=== PATIENT | female | born 1995 | race Caucasian/White ===

== ENCOUNTER 2021-03-12 13:21 | Outpatient (CLI) | payer OTHER ==
[2021-03-12 18:35] LABS: HCT - HEMATOCRIT 39.1 % (37.0-47.0); HGB - HEMOGLOBIN 12.7 g/dL (12.0-16.0); MEAN CORPUSCULAR HEMOGLOBIN 29.9 pg (27.0-31.0); MEAN CORPUSCULAR HGB CONC 32.5 g/dL (32.0-36.0); MEAN PLATELET VOLUME 11.1 fL (7.9-10.8); RED BLOOD COUNT 4.25 10^6/uL (4.20-5.40); RED CELL DISTRIBUTION WIDTH 11.7 % (12.0-15.0); WHITE BLOOD COUNT 7.3 x10^3/uL (4.8-10.8)
[2021-03-12 19:15] LABS: THYROID STIMULATING HORMONE 1.18 uIU/mL (0.34-5.60)
[2021-03-12 19:20] LABS: FREE T4 (FREE THYROXINE) 0.9 ng/dL (0.58-1.64); PROLACTIN 18.79 ng/mL
[2021-03-12 19:43] LABS: FOLLICLE STIMULATING HORMONE 9.91 mIU/mL
[2021-03-12 20:04] LABS: ALBUMIN 4.9 g/dL (3.2-5.5); ALBUMIN/GLOBULIN RATIO 1.6 (1.0-2.2); BILIRUBIN,TOTAL 0.5 mg/dL (0.2-1.0); CALCIUM 9.4 mg/dL (8.5-10.3); CREATININE 0.6 mg/dL (0.4-1.0); POTASSIUM 3.6 mmol/L (3.5-5.0); TOTAL PROTEIN 7.9 g/dL (6.7-8.2)
[2021-03-12 21:31] LABS: ESTIMATED AVERAGE GLUCOSE 97 mg/dL (70-100)
== END 2021-03-12 23:59 | disposition home or self-care (01) ==
LOC: LAB.WCP 13:21
PROVIDERS: ATTEND Obstetrics & Gynecology
DX: Z00.00 Encounter for general adult medical examination without abnormal findings (principal); Z13.29 Encounter for screening for other suspected endocrine disorder; Z83.3 Family history of diabetes mellitus; R68.89 Other general symptoms and signs; N91.5 Oligomenorrhea, unspecified; Z13.21 Encounter for screening for nutritional disorder; Z13.1 Encounter for screening for diabetes mellitus; Z86.2 Personal history of diseases of the blood and blood-forming organs and certain disorders involving the immune mechanism
CPT/HCPCS: 36415; 80053; 81599; 82306; 82670; 83001; 83036; 83498; 83520; 83540; 84146; 84403; 84439; 84443; 84466; 85025; 85027

== ENCOUNTER 2022-08-27 16:31 | Outpatient (CLI) | payer OTHER ==
--- NOTE | 2022-08-28 09:43 | Ultrasound Report ---
PROCEDURE: Pelvic w/Transvaginal INDICATIONS: ABN BREAST FINDINGS,DYSMENORRHEA TECHNIQUE: Real-time scanning was performed of the pelvic organs, with image documentation. Additional endovagi nal scanning was necessary due to incomplete visualization of the adnexal and endometrial structures by transabdominal scanning. COMPARISON: None. FINDINGS: Uterus: Uterus is anteverted and normal in size at 8.5 x 3.6 x 4.4 cm. The myometrium is homogeneou s. The endometrium measures 8.2 mm in combined thickness. There is a polypoidal filling defect with in the cervix measuring 5 mm. Ovaries: The right ovary measures 2.8 x 1.9 x 2.2 cm, with a calculated ovarian volume of 6 cc. The left ovary measures 3 x 2 x 2.9 cm, with a calculated ovarian volume of 9 cc. The ovaries have a no rmal sonographic appearance. Less than 12 follicles can be seen in each ovary. No adnexal masses ar e seen. No cystic lesions measuring greater than 3 cm. Other: No pathologic free abdominal or pelvic fluid. IMPRESSION: Polypoid filling defect within the cervix measuring 5 mm. Recommend direct visualization. Reviewed by: Nicolas Rico on 08/28/2022 9:42 AM PDT Approved by: Nicolas Rico on 08/28/2022 9:42 AM PDT Station ID: [id number]
== END 2022-08-27 16:32 | disposition home or self-care (01) ==
LOC: DI 16:31
PROVIDERS: ATTEND Nurse Practitioner
DX: N87.9 Dysplasia of cervix uteri, unspecified (principal); N94.6 Dysmenorrhea, unspecified

== ENCOUNTER 2022-09-02 12:28 | Outpatient (CLI) | payer OTHER ==
--- NOTE | 2022-09-03 12:04 | Ultrasound Report ---
LIMITED ULTRASOUND OF RIGHT BREAST: 09/02/2022 CLINICAL: Palpable right breast lump. Focal right breast pain. No prior exams were available for comparison. Color flow and real-time ultrasound of the right breast 8-9 o'clock region were performed. Mooney scal e images of the real-time examination were reviewed. No significant abnormalities were seen sonographically in the right breast in the region of concern. IMPRESSION: NEGATIVE There is no sonographic evidence of malignancy. No mass or significant cyst. Exam findings were conveyed to the patient. Patient is advised to monitor for significant change. Cli nical follow-up as needed. This exam was interpreted at Station ID: [id number]. Electronically Signed By: Diego Olivas M.D. slc/:09/02/2022 13:23:07 Ultrasound BI-RADS: 1 Negative BI-RADS CATEGORY: (1) - 1 Unspecified - other recall n/a LATERALITY: (B)
== END 2022-09-02 12:29 | disposition home or self-care (01) ==
LOC: DI 12:28
PROVIDERS: ATTEND Nurse Practitioner
DX: N63.13 Unspecified lump in the right breast, lower outer quadrant (principal); N64.4 Mastodynia

== ENCOUNTER 2023-06-03 07:05 | Emergency (ER) | payer SELFPAY ==
--- NOTE | 2023-06-03 07:26 | ED Physician Documentation ---
PD HPI HEADACHE - Stated complaint Stated Complaint: MIGRANE/ - Chief complaint Chief Complaint: Neuro - History obtained from History obtained from: Patient - History of Present Illness Timing - onset: How many days ago (has had onset migraine type BYERS 8 days ago that has persisted to varying dgrees. Now also lower abd/pelvic cramping pain, lower right most, for few days.) Timing - onset during: Light activity Timing - details: Gradual onset, Still present Worst headache ever?: No: Worst headache ever? (similar to prior migraines when teenager but duration has not occurred before.) Location: Back, Right Quality: Throbbing, Aching Associated symptoms: Nausea, Vision changes (blurred but not loss of vision per se.). No: Fever, Stiff neck, Vomiting Improved by: Quiet Worsened by: Noise Contributing factors: No: Possible carbon monoxide, Recent illness, Trauma Similar symptoms before: Diagnosis (migraines when teeneager, not had for awhile.) Review of Systems Constitutional: denies: Fever, Chills Eyes: reports: Decreased vision, Photophobia. denies: Loss of vision Nose: denies: Rhinorrhea / runny nose, Congestion Throat: denies: Sore throat Respiratory: denies: Cough Skin: denies: Rash Neurologic: denies: Focal weakness, Numbness, Altered mental status PD PAST MEDICAL HISTORY - Past Medical History Past Medical History: Yes Neuro: Migraines (when younger) CONSULTING SOLUTION MANAGER: Other (irregular menses pattern and dysmenorrhia. ) - Past Surgical History Past Surgical History: No - Present Medications Home Medications: Ambulatory Orders Medication Instructions Recorded Confirmed HYDROcod/ACETAM 5/325 [[place] 5/325] 1 ea PO Q6H PRN #12 tablet 06/03/23 Meloxicam [Mobic] 7.5 mg PO BID 10 Days #20 tablet 06/03/23 Ondansetron Odt [Zofran] 4 mg TL Q6H PRN #10 tablet 06/03/23 SUMAtriptan [Imitrex] 25 mg PO Q6H PRN #5 tablet 06/03/23 dexAMETHasone [Decadron] 4 mg PO DAILY #5 tablet 06/03/23 - Allergies Allergies/Adverse Reactions: Allergies Allergy/AdvReac Type Severity Reaction Status Date / Time No Known Drug Allergies Allergy Verified 06/03/23 07:16 - Social History Does the pt smoke?: No Smoking Status: Never smoker Does the pt drink ETOH?: Yes Does the pt have substance abuse?: No - Immunizations Immunizations are current?: Yes - POLST Patient has POLST: No PD ED PE NORMAL - Vitals Vital signs reviewed: Yes - General General: Alert and oriented X 3, Well developed/nourished - HEENT HEENT: PERRL, EOMI, Ears normal, Pharynx benign - Neck Neck: Supple, no meningeal sign, No adenopathy - Cardiac Cardiac: RRR, No murmur - Respiratory Respiratory: Clear bilaterally - Abdomen Abdomen: Normal bowel sounds, Soft, Non distended, Other (tender suprapubic and Right lower abd/pelvic area. ) - Female Female : Deferred - Derm Derm: Normal color, Warm and dry - Neuro Neuro: Alert and oriented X 3, No motor deficit, No sensory deficit, Normal speech Eye Opening: Spontaneous Motor: Obeys Commands Verbal: Oriented GCS Score: 15 Results - Vitals Vitals: Vital Signs - 24 hr 06/03/23 06/03/23 09:33 10:33 Heart Rate 82 76 Respiratory 16 Rate Blood Pressure 108/78 112/84 H O2 Saturation 99 100 Oxygen O2 Source Room air - Labs Labs: Laboratory Tests 06/03/23 06/03/23 06/03/23 07:30 07:30 08:15 WBC 6.4 RBC 4.50 Hgb 13.2 Hct 40.3 MCV 89.6 MCH 29.3 MCHC 32.8 RDW 11.9 L Plt Count 288 MPV 10.4 Neut # (Auto) 4.4 Lymph # (Auto) 1.2 L Hall # (Auto) 0.6 Eos # (Auto) 0.2 Baso # (Auto) 0.0 Absolute Nucleated RBC 0.00 Nucleated RBC % 0.0 Sodium 141 Potassium 3.7 Chloride 109 Carbon Dioxide 25 Anion Gap 7.0 BUN 11 Creatinine 0.7 Estimated GFR (MDRD) 99 Glucose 87 Calcium 9.6 Total Bilirubin 0.5 AST 11 ALT 12 Alkaline Phosphatase 54 Total Protein 7.7 Albumin 5.0 Globulin 2.7 Albumin/Globulin Ratio 1.9 Lipase < 10 L Serum HCG, Qual NEGATIVE Urine Color YELLOW Urine Clarity CLEAR Urine pH 6.0 Ur Specific [place] >=1.030 H Urine Protein NEGATIVE Urine Glucose (UA) NEGATIVE Urine Ketones NEGATIVE Urine Occult Blood SMALL H Urine Nitrite NEGATIVE Urine Bilirubin NEGATIVE Urine Urobilinogen 0.2 (NORMAL) Ur Leukocyte Esterase NEGATIVE Urine RBC 6-10 H Urine WBC 0-3 Ur Squamous Epith Cells FEW Squamous Urine Bacteria Few Urine Mucus Moderate Strands Ur Microscopic Review INDICATED Urine Culture Comments NOT INDICATED - Rads (name of study) head CT Relevant Findings:: Prelim report reviewed (no acute process), EMP independent interpretation of test pelvic US Relevant Findings:: Prelim report reviewed (no acute process), EMP independent interpretation of test PD Medical Decision Making - ED course Complexity details: reviewed results (head CT without acute findings. Pelvic US without acute abnormalities. ), re-evaluated patient (much improved headache with Toradol and Inapsine and fluids, most c/w migraine type BYERS. Still with abd cramping, which makes sense as migraine meds not likely to help that per se (except Toradol). Given Dilaudid as well. ), considered differential (8 days of migrainous type headache varying in severity through the day (worse later in day). Character of it is similar to migraines when teenager. Also with lower abd cramping with uterine bleeding/clots for few days. h/o irregular periods. ), d/w patient Reviewed Lab Results: pelvic US without acute findings. Her pain is correlated with vag bleeding/clots, menses and after few days does not have fever, leukocytosis nor peritoneal findings, so I did not feel need to pursue other process such as appendix. Head CT done since prlonged migraine type BYERS but has not had them this long previous. No focal neuro findings. Does not seem meningitic. LP felt not indicated. Departure - Departure Disposition: 01 Home, Self Care Clinical Impression: Headache, Lower abdominal pain, Dysmenorrhea, Migraine with status migrainosus Condition: Stable Record reviewed to determine appropriate education?: Yes Instructions: ED Cramping Menstrual, ED Headache Migraine [facility]: [facility] [Provider Group] Prescriptions: dexAMETHasone [Decadron] 4 mg PO DAILY #5 tablet SUMAtriptan [Imitrex] 25 mg PO Q6H PRN #5 tablet PRN Reason: Migraine Meloxicam [Mobic] 7.5 mg PO BID 10 Days #20 tablet HYDROcod/ACETAM 5/325 [[place] 5/325] 1 ea PO Q6H PRN #12 tablet PRN Reason: Pain Ondansetron Odt [Zofran] 4 mg TL Q6H PRN #10 tablet PRN Reason: Nausea / Vomiting Comments: Regarding your headache, it had the character of a migraine and seem to respond to typical migraine type medications of nausea medicine and anti-inflammatory as well as fluids. You do not seem to have infectious character and so does not seem like meningitis or other infectious cause. There was not any injury such as concussion. Your C6 CT scan did not show any structural abnormalities such as tumor or bleeding aneurysms. Will presume a migraine headache with status migraine which means prolonged period I would suggest some anti-inflammatories over the next few days. If you have a little bit of persisting headache, then continue steroid anti-inflammatories over a few more days as well. Stable hydrated. Tylenol 500 to 650 mg every 4-6 hours if needed. To that add hydrocodone every 6 hours if needed for worse headache or in particular worse pelvic pain. For subsequent migraines, if you can get them, you can try combination of Tylenol or Excedrin and if not improving then ondansetron and sumatriptan migraine medicine. I wrote a prescription for some of those. Regarding your pelvic pain, your test is negative. Urine does not show signs of infection. Your blood count is good. Ultrasound did not show any signs of cysts or fibroids or other structural abnormalities. Presume some inflammatory aspect to the ovaries causing the pain. The anti-inflammatory would be targeted for this. I wrote for meloxicam twice daily for the next week. Same course of adding Tylenol or hydrocodone if needed. I sent your prescriptions to [facility] pharmacy. Off work today. Recheck if not improved well over the next several days or return worse if worsening. I am prescribing a short course of narcotic pain medication for you. These are potentially dangerous and addictive medications that should be used carefully. These medications may constipate you. Take an imfi-myv-sqnjjlc stool softener such as docusate twice daily with plenty of water while taking these medications. If you go 24 hours without a bowel movement, take ojvy-smi-rupbaos MiraLAX, per package instructions. Do not drink or drive while taking these medications. If you received narcotic or sedating medications while in the emergency department do not drive for 24 hours. Store this medication in a safe, secure place and out of reach of children. It is a violation of federal law to give or sell this medication to another person or to use in a manner other than prescribed. The ED will not refill narcotic prescriptions, including prescriptions lost or stolen. You can dispose of unwanted medications at the [facility] office or at several pharmacies such as [facility]. Forms: PCP List Discharge Date/Time: 06/03/23 10:57
[2023-06-03 08:04] LABS: BASOPHILS % (AUTO) 0.2 %; EOSINOPHILS # (AUTO) 0.2 10^3/uL (0.0-0.7); EOSINOPHILS % (AUTO) 2.5 %; HCT - HEMATOCRIT 40.3 % (37.0-47.0); HGB - HEMOGLOBIN 13.2 g/dL (12.0-16.0); LYMPHOCYTES # (AUTO) 1.2 10^3/uL (1.5-3.5); LYMPHOCYTES % (AUTO) 18.4 %; MEAN CORPUSCULAR HEMOGLOBIN 29.3 pg (27.0-31.0); MEAN CORPUSCULAR HGB CONC 32.8 g/dL (32.0-36.0); MEAN CORPUSCULAR VOLUME 89.6 fL (81.0-99.0); MEAN PLATELET VOLUME 10.4 fL (7.9-10.8); MONOCYTES # (AUTO) 0.6 10^3/uL (0.0-1.0); MONOCYTES % (AUTO) 8.7 %; NEUTROPHILS # (AUTO) 4.4 10^3/uL (1.5-6.6); NEUTROPHILS % (AUTO) 69.9 %; PLT - PLATELET COUNT 288 10^3/uL (130-450); RED CELL DISTRIBUTION WIDTH 11.9 % (12.0-15.0); WHITE BLOOD COUNT 6.4 x10^3/uL (4.8-10.8)
[2023-06-03] MEDS: DROPERIDOL 5 MG/2 ML VIAL IVP STA (08:09)
[2023-06-03] MEDS: SODIUM CHLORIDE 0.9% 1,000 ML IV STA ×2 (08:09→09:10)
[2023-06-03] MEDS: KETOROLAC 15 MG/ML VIAL IVP STA (08:10)
[2023-06-03] MEDS: DEXAMETHASONE 10 MG/ML VIAL IVP STA (08:13)
[2023-06-03 08:14] LABS: ALBUMIN/GLOBULIN RATIO 1.9 (1.0-2.2); ALKALINE PHOSPHATASE 54 IU/L (42-121); ALT ALANINE AMINOTRANSFERASE 12 IU/L (10-60); AST ASPARTATE AMINOTRANSFERASE 11 IU/L (10-42); BILIRUBIN,TOTAL 0.5 mg/dL (0.2-1.0); BUN - BLOOD UREA NITROGEN 11 mg/dL (6-20); CALCIUM 9.6 mg/dL (8.5-10.3); CARBON DIOXIDE - CO2 25 mmol/L (21-32); CHLORIDE 109 mmol/L (101-111); CREATININE 0.7 mg/dL (0.6-1.3); GFR - MDRD 99 (>89); GLUCOSE 87 mg/dL (74-104); LIPASE < 10 U/L (11-82); POTASSIUM 3.7 mmol/L (3.5-4.5); SODIUM 141 mmol/L (135-145); TOTAL PROTEIN 7.7 g/dL (6.4-8.9)
[2023-06-03 08:21] LABS: HCG,QUALITATIVE BLOOD NEGATIVE
[2023-06-03 08:26] LABS: BILIRUBIN,URINE NEGATIVE (NEGATIVE); CLARITY,URINE CLEAR (CLEAR); GLUCOSE, URINE (UA) NEGATIVE (NEGATIVE); KETONES,URINE (UA) NEGATIVE (NEGATIVE); LEUKOCYTE ESTERASE, URINE NEGATIVE (NEGATIVE); NITRITE,URINE NEGATIVE (NEGATIVE); OCCULT BLOOD,URINE SMALL (NEGATIVE); PROTEIN,URINE NEGATIVE (NEGATIVE); UROBILINOGEN,URINE 0.2 (NORMAL) E.U./dL (NORMAL)
[2023-06-03 08:33] LABS: BACTERIA,URINE Few /HPF (None Seen); MUCUS,URINE Moderate Strands; SQUAMOUS EPITHELIAL CELL,UR FEW Squamous (<= Few); WBC,URINE 0-3 /HPF (0-5)
--- NOTE | 2023-06-03 08:39 | CT Report ---
PROCEDURE: Head WO INDICATIONS: BYERS for 8 days TECHNIQUE: Noncontrast 4.5 mm thick angled axial sections acquired from the foramen magnum to the vertex. For r adiation dose reduction, the following was used: automated exposure control, adjustment of mA and/or kV according to patient size. COMPARISON: None. FINDINGS: Image quality: Excellent. CSF spaces: Basal cisterns are patent. No extra-axial fluid collections. Ventricles are normal in size and shape. Brain: No midline shift. No intracranial masses or hemorrhage. Mooney-white matter interface is norm al. Skull and face: Calvarium and visualized facial bones are intact, without suspicious lesions. Sinuses: Visualized sinuses and mastoids are clear. IMPRESSION: No acute intracranial pathology. Reviewed by: Miguel Allan MD on 06/03/2023 8:38 AM PST Approved by: Miguel Allan MD on 06/03/2023 8:38 AM [facility] Station ID: [id number]
[2023-06-03] MEDS: HYDROmorphone 1 MG/ML CARPUJECT IVP STA (10:29)
[2023-06-03 10:35] VITALS: BP 112/84; O2SAT 100
--- NOTE | 2023-06-03 11:26 | Ultrasound Report ---
PROCEDURE: Pelvic w/Doppler Complete INDICATIONS: pelvic pain, R; vag bleeding/clots TECHNIQUE: Sonographic pelvic ultrasound images with Doppler were obtained. COMPARISON: None. FINDINGS: Uterus measures 8.4 x 3.5 x 4.5 cm. Endometrium measures 6.8 cm. It is anteverted. The right ovary me asures 3.6 x 2.4 x 2.0 cm. Volume measures 9 mm. Left ovary measures 1.8 x 1.8 x 2.0 cm. I measures 3 .4 mm. Doppler flow is identified to both ovaries. IMPRESSION: Unremarkable exam with appropriate Doppler flow. Reviewed by: Windy Wu MD on 06/03/2023 11:25 AM PST Approved by: Windy Wu MD on 06/03/2023 11:25 AM [facility] Station ID: [id number]
== END 2023-06-03 10:57 | disposition home or self-care (01) ==
LOC: ED 07:05
DX: G43.901 Migraine, unspecified, not intractable, with status migrainosus (principal); N94.6 Dysmenorrhea, unspecified; R10.31 Right lower quadrant pain
CPT/HCPCS: 36415; 80053; 81001; 81003; 83690; 84703; 85025; 87086; 93975; 96374; 96375; 99284

== ENCOUNTER 2023-12-15 08:00 | Outpatient (CLI) | payer SELFPAY ==
[2023-12-15 17:55] LABS: BASOPHILS # (AUTO) 0.1 10^3/uL (0.0-0.1); BASOPHILS % (AUTO) 0.8 %; EOSINOPHILS # (AUTO) 0.2 10^3/uL (0.0-0.7); EOSINOPHILS % (AUTO) 2.7 %; HCT - HEMATOCRIT 40.3 % (37.0-47.0); HGB - HEMOGLOBIN 13.3 g/dL (12.0-16.0); LYMPHOCYTES # (AUTO) 1.9 10^3/uL (1.5-3.5); LYMPHOCYTES % (AUTO) 24.9 %; MEAN CORPUSCULAR HEMOGLOBIN 29.6 pg (27.0-31.0); MEAN CORPUSCULAR VOLUME 89.6 fL (81.0-99.0); MEAN PLATELET VOLUME 10.2 fL (7.9-10.8); MONOCYTES # (AUTO) 0.6 10^3/uL (0.0-1.0); MONOCYTES % (AUTO) 7.6 %; NEUTROPHILS % (AUTO) 63.7 %; PLT - PLATELET COUNT 323 10^3/uL (130-450); RED CELL DISTRIBUTION WIDTH 11.8 % (12.0-15.0); WHITE BLOOD COUNT 7.8 x10^3/uL (4.8-10.8)
[2023-12-15 18:25] LABS: THYROID STIMULATING HORMONE 1.88 uIU/mL (0.34-5.60)
[2023-12-15 21:21] LABS: ESTIMATED AVERAGE GLUCOSE 88 mg/dL (70-100); HEMOGLOBIN A1c% 4.7 % (4.27-6.07)
[2023-12-17 02:08] LABS: HBsAG SCREEN Negative (Negative)
[2023-12-17 07:10] LABS: RPR Non Reactive (Non Reactive)
[2023-12-17 08:11] LABS: HIV SCREEN 4TH GENERATION Non Reactive (Non Reactive)
[2023-12-17 09:10] LABS: VARICELLA-ZOSTER AB IGG <135 index (Immune >165)
[2023-12-18 01:08] LABS: HCV AB Non Reactive (Non Reactive)
== END 2023-12-15 08:01 | disposition home or self-care (01) ==
LOC: LAB.WC 08:00
PROVIDERS: ATTEND Nurse Practitioner
DX: O20.9 Hemorrhage in early pregnancy, unspecified (principal); O99.891 Other specified diseases and conditions complicating pregnancy; R23.2 Flushing
CPT/HCPCS: 36415; 83036; 84439; 84443; 84702; 85025; 86592; 86762; 86787; 86803; 86850; 86900; 86901; 87340; 87389